=== PATIENT | female | born 1970 | race Caucasian/White ===

== ENCOUNTER 2017-08-19 12:39 | Emergency (ER) | payer BC ==
[2017-08-19 13:55] VITALS: BP 124/87
--- NOTE | 2017-08-19 16:59 | UC ---
Respiratory Complaint HPI - HPI Summary HPI Summary: 46 yo WF c/o cough with pleuritic CP associated with bodyaches, f/c x2-3 days, Pleuritic CP worsening with more whitish productive cough Recently from , and has been staying with friend, feels very tired and under the weather - History of Current Complaint Chief Complaint: UCGeneralIllness Stated Complaint: COUGH,SIDE PAIN Time Seen by Provider: 08/19/17 16:21 Hx Obtained From: Patient Hx From Patient Unobtainable Due To: Other Hx Last Menstrual Period: 08/08/17 Onset/Duration: Lasting Days Severity Currently: Moderate Pain Intensity: 3 Character: Cough: Productive Aggravating Factors: Deep Breaths Associated Signs And Symptoms: Positive: Fever, Chills, Pleuritic Chest Pain - Allergies/Home Medications Allergies/Adverse Reactions: Allergies Allergy/AdvReac Type Severity Reaction Status Date / Time Sulfa (Sulfonamide Allergy Mild Rash Verified 08/19/17 13:56 Antibiotics) [employer] Allergy SEVERE Uncoded 09/11/14 08:19 SWELLING PMH/Surg Hx/FS Hx/Imm Hx - Surgical History Surgical History: Yes Surgery Procedure, Year, and Place: 1983 APPENDECTOMY, [facility]. 2006 CARD[facility]AC ABLATION, [facility]. 2001 & 2005 DILATION AND CURETTAGE X 2, [facility] - Family History Known Family History: Positive: None - Social History Alcohol Use: Occasionally Substance Use Type: None Smoking Status (MU): Never Smoked Tobacco - Immunization History Most Recent Tetanus Shot: unknown Review of Systems Constitutional: Fever, Chills, Fatigue Skin: Negative Eyes: Negative ENT: Negative Respiratory: Cough, Other - pleuritic cp Cardiovascular: Negative Gastrointestinal: Negative Genitourinary: Negative Motor: Negative Neurovascular: Negative Musculoskeletal: Myalgia Neurological: Negative Psychological: Negative Is Patient Immunocompromised?: No All Other Systems Reviewed And Are Negative: Yes Physical Exam Triage Information Reviewed: Yes Appearance: Ill-Appearing, Thin Vital Signs: Initial Vital Signs Temp 36.9 C 08/19/17 13:50 Pulse 82 08/19/17 13:50 Resp 20 08/19/17 13:50 BP 124/87 08/19/17 13:50 Pulse Ox 99 08/19/17 13:50 Eye Exam: Normal ENT Exam: Normal Dental Exam: Normal Neck exam: Normal Neck: Positive: 1 Respiratory Exam: Normal Respiratory: Positive: No respiratory distress, Rhonchi. Negative: Crackles, Stridor, Wheezing Cardiovascular Exam: Normal Abdominal Exam: Normal Musculoskeletal Exam: Normal Neurological Exam: Normal Psychological Exam: Normal Skin Exam: Normal UC Diagnostic Evaluation - Laboratory O2 Sat by Pulse Oximetry: 99 Respiratory Course/Dx - Course Course Of Treatment: bronchitis in setting of Influenza B (via rapid flu) - Differential Dx/Diagnosis Differential Diagnosis/HQI/PQRI: Influenza, Lower Resp Infection Provider Diagnoses: Influenza B. Bronchitis Discharge - Discharge Plan Condition: Stable Disposition: HOME Prescriptions: Azithromycin TAB* [Zithromax TAB (Z-NICKOLAS) 250 mg #6 tabs] 2 tab PO .TODAY, THEN 1 DAILY #1 nickolas Oseltamivir Phosphate [Tamiflu] 75 mg PO BID 5 Days #10 capsule Patient Education Materials: Influenza (ED), Acute Bronchitis (ED) Referrals: Dasha Reyna [facility] [Primary Care Provider] - Additional Instructions: as tolerated
== END 2017-08-19 17:13 | disposition home or self-care (01) ==
LOC: UCEAST 12:39
DX: J10.1 Influenza due to other identified influenza virus with other respiratory manifestations (principal); J40 Bronchitis, not specified as acute or chronic
CPT/HCPCS: 87502; 99212; G0463